=== PATIENT | male | born 1995 | race Caucasian/White ===

== ENCOUNTER 2023-02-09 18:16 | Emergency (ER) | payer OTHER ==
[~2023-02-09] VITALS: Ht 177.8 cm; Wt 60.0 kg
[2023-02-09 18:23] VITALS: O2SAT 100
[2023-02-09] MEDS ORDERED: IBUPROFEN 600MG TABLET PO ONE (18:30)
[2023-02-09] MEDS ORDERED: IBUP-2029 MT (18:55)
[2023-02-09 19:31] VITALS: BP 137/65; PULSE 69; RESP 20; TEMP 98.1
== END 2023-02-09 19:33 | disposition home or self-care (01) ==
LOC: ER 18:16
DX: M25.532 Pain in left wrist (principal); S60.212A Contusion of left wrist, initial encounter; X58.XXXA Exposure to other specified factors, initial encounter; Y93.89 Activity, other specified; Y92.89 Other specified places as the place of occurrence of the external cause; Y99.8 Other external cause status
CPT/HCPCS: 73110; 99283